=== PATIENT | male | born 2000 | race Caucasian/White ===

== ENCOUNTER 2018-09-19 09:37 | Observation (INO) | payer OTHER ==
[2018-09-19] MEDS ORDERED: SODIUM CHLORIDE 0.9% 500 ML 500 ML IV STA (09:55)
[2018-09-19] MEDS ORDERED: MAG HYDROX/AL HYDROX/SIMETH 30 ML, HYOSCYAMINE ELIXIR 10 ML, CIMETIDINE HCL 300 MG, LID... PO STA ×4 (10:07)
--- NOTE | 2018-09-19 10:25 | ED ---
General Adult HPI - General Source: patient Mode of arrival: ambulatory Limitations: no limitations <Lemuel Blanco - Last Filed: 09/19/18 10:09> <Joni Dozier - Last Filed: 09/20/18 15:14> - General Chief complaint: Abdominal Pain Stated complaint: CAMILA - History of Present Illness Initial comments: 17-year-old male patient with no pertinent past medical history presents to ED with abdominal pain. Patient states that shortly after waking up this morning at approximately 8:30 AM he began to experience crampy, sharp/stabbing, waxing and waning abdominal pain. The pain is located in his epigastric region, does not radiate. Patient states that for this pain he took one 81 mg aspirin. The aspirin did not relieve his symptoms. During the episodes of crampy epigastric abdominal pain the patient additionally experiences some shortness of breath. The SOB is not exertional and has no associated chest pain. The SOB has resolved. Patient has some nausea, but no emesis. Systemic: Pt denies fatigue, myalgia, fever/chills, rash. Pt denies weakness, night sweats, weight loss. Neuro: Pt denies headache, visual disturbances, syncope or pre-syncope. HEENT: Pt denies ocular discharge or irritation, otalgia, rhinorrhea, pharyngitis or notable lymphadenopathy. Cardiopulmonary: Pt denies chest pain, heart palpitations, dyspnea on exertion. Abdominal/GI: Pt denies emesis or diarrhea. : Pt denies dysuria, burning w/ urination, frequency/urgency. Denies new onset urinary or bowel incontinence. MSK: Pt denies myalgia, loss of strength or function in extremities. (Lemuel Blanco) - Related Data Previous Rx's Medication Instructions Recorded Omeprazole [PriLOSEC] 40 mg PO AC-BRKFST #14 capsule. 09/20/18 Allergies Allergy/AdvReac Type Severity Reaction Status Date / Time No Known Allergies Allergy Verified 09/19/18 10:20 Review of Systems ROS Other: All systems not noted in ROS Statement are negative. <Lemuel Blanco - Last Filed: 09/19/18 10:09> ROS Other: All systems not noted in ROS Statement are negative. <Joni Dozier - Last Filed: 09/20/18 15:14> ROS Statement: Those systems with pertinent positive or pertinent negative responses have been documented in the HPI. Past Medical History Past Medical History: No Reported History History of Any Multi-Drug Resistant Organisms: None Reported Past Surgical History: No Surgical Hx Reported Past Psychological History: Depression Smoking Status: Never smoker Past Alcohol Use History: None Reported Past Drug Use History: Marijuana <Lemuel Blanco - Last Filed: 09/19/18 10:09> - Past Family History Mother Additional Family Medical History / Comment(s): migraines Father Family Medical History: Hypertension <Joni Dozier - Last Filed: 09/20/18 15:14> General Exam Limitations: no limitations <Lemuel Blanco - Last Filed: 09/19/18 10:09> <Joni Dozier - Last Filed: 09/20/18 15:14> - General Exam Comments Initial Comments: Constitutional: NAD, AOX3, Pt has pleasant affect. HEENT: NC/AT, trachea midline, neck supple, no lymphadenopathy. Posterior pharynx non erythematous, without exudates. External ears appear normal, without discharge. Mucous membranes moist. Eyes PERRLA, EOM intact. There is no scleral icterus. No pallor noted. Cardiopulmonary: RRR, no murmurs, rubs or gallops, no JVD noted. Lungs CTAB in anterior and posterior woods. No peripheral edema. Abdominal exam: Abdomen soft and non-distended. Abdomen non-tender to palpation in all 4 quadrants. No ecchymosis, no cullens or alonzo turners sign. No tenderness at mcburneys point, rosvings sign negative. [place] sign negative. Bowel sounds active in LLQ. No hepatosplenomegaly. Neuro: CN II-XII grossly intact. (Lemuel Blanco) Vital Signs 09/19/18 09/19/18 09/19/18 09:38 13:39 16:33 Temperature 97.3 F L Pulse Rate 74 85 78 Respiratory 18 18 18 Rate Blood Pressure 136/92 137/94 131/87 O2 Sat by Pulse 99 98 97 Oximetry Medical Decision Making - EKG Data -: EKG Interpreted by Me <Lemuel Blanco - Last Filed: 09/19/18 10:09> - Lab Data Result diagrams: 09/19/18 10:20 09/19/18 10:20 <Joni Dozier - Last Filed: 09/20/18 15:14> - Medical Decision Making 17-year-old male patient with no pertinent past medical history presents to ED with epigastric abdominal pain. The pain began this morning and was not relieved with one 325 aspirin. Patient states that upon waking out he had waxing and waning crampy epigastric abdominal pain. The patient felt these cramps pain as he had difficulty breathing. The difficulty breathing resolved after the episode of abdominal "cramping" ended. Patient was transported to [facility]. Physical exam of patient was non-impressive, notably a nontender abdomen, and a benign cardiopulmonary exam. Upon arrival investigations into intra-abdominal pathology were conducted. These included CT with contrast of the abdomen/pelvis, which displayed one likely nonobstructive gallstone. Laboratory investigations included, CBC, CMP, amylase/lipase, lactic acid - all of which were nonimpressive. An EKG displayed ST elevation consistent with pericarditis. Follow up studies including a d-dimer and troponin were wnl. A repeat EKG displayed the same findings. A bedside echo was also conducted. The pt will be admitted into observation and serial trops. This pt was discussed at length with Dr. Dozier. (Lemuel Blanco) - Lab Data Lab Results 09/19/18 09/19/18 09/19/18 Range/Units 10:20 10:20 10:20 WBC 10.9 (4.0-11.0) k/uL RBC 5.07 (4.30-5.90) m/uL Hgb 15.1 (13.0-17.5) gm/dL Hct 47.0 (39.0-53.0) % MCV 92.7 (80.0-100.0) fL MCH 29.8 (25.0-35.0) pg MCHC 32.2 (31.0-37.0) g/dL RDW 12.7 (11.5-15.5) % Plt Count 334 (150-450) k/uL Neutrophils % 68 % Lymphocytes % 24 % Monocytes % 5 % Eosinophils % 1 % Basophils % 0 % Neutrophils # 7.5 (1.3-7.7) k/uL Lymphocytes # 2.6 (1.0-4.8) k/uL Monocytes # 0.6 (0-1.0) k/uL Eosinophils # 0.1 (0-0.7) k/uL Basophils # 0.0 (0-0.2) k/uL D-Dimer (<0.60) mg/L FEU Sodium 140 (137-145) mmol/L Potassium 4.7 (3.5-5.1) mmol/L Chloride 106 (98-107) mmol/L Carbon Dioxide 27 (22-30) mmol/L Anion Gap 7 mmol/L BUN 17 (9-20) mg/dL Creatinine 0.83 (0.66-1.25) mg/dL Est GFR (CKD-EPI)AfAm >90 (>60 ml/min/1.73 sqM) Est GFR (CKD-EPI)NonAf >90 (>60 ml/min/1.73 sqM) Glucose 108 H (74-99) mg/dL Plasma Lactic Acid Aleks 1.0 (0.7-2.0) mmol/L Calcium 9.4 (8.4-10.2) mg/dL Total Bilirubin 0.5 (0.2-1.3) mg/dL AST 54 (17-59) U/L ALT 65 (21-72) U/L Alkaline Phosphatase 38 (38-126) U/L Troponin I (0.000-0.034) ng/mL Total Protein 7.2 (6.3-8.2) g/dL Albumin 4.0 (3.5-5.0) g/dL Amylase 63 (30-110) U/L Lipase 40 (23-300) U/L 09/19/18 09/19/18 Range/Units 10:20 10:20 WBC (4.0-11.0) k/uL RBC (4.30-5.90) m/uL Hgb (13.0-17.5) gm/dL Hct (39.0-53.0) % MCV (80.0-100.0) fL MCH (25.0-35.0) pg MCHC (31.0-37.0) g/dL RDW (11.5-15.5) % Plt Count (150-450) k/uL Neutrophils % % Lymphocytes % % Monocytes % % Eosinophils % % Basophils % % Neutrophils # (1.3-7.7) k/uL Lymphocytes # (1.0-4.8) k/uL Monocytes # (0-1.0) k/uL Eosinophils # (0-0.7) k/uL Basophils # (0-0.2) k/uL D-Dimer 0.32 (<0.60) mg/L FEU Sodium (137-145) mmol/L Potassium (3.5-5.1) mmol/L Chloride (98-107) mmol/L Carbon Dioxide (22-30) mmol/L Anion Gap mmol/L BUN (9-20) mg/dL Creatinine (0.66-1.25) mg/dL Est GFR (CKD-EPI)AfAm (>60 ml/min/1.73 sqM) Est GFR (CKD-EPI)NonAf (>60 ml/min/1.73 sqM) Glucose (74-99) mg/dL Plasma Lactic Acid Aleks (0.7-2.0) mmol/L Calcium (8.4-10.2) mg/dL Total Bilirubin (0.2-1.3) mg/dL AST (17-59) U/L ALT (21-72) U/L Alkaline Phosphatase (38-126) U/L Troponin I <0.012 (0.000-0.034) ng/mL Total Protein (6.3-8.2) g/dL Albumin (3.5-5.0) g/dL Amylase (30-110) U/L Lipase (23-300) U/L - EKG Data EKG Comments: 1 - 11:52) Normal sinus rhythm. Diffuse ST elevations V1 to V6. No ST depressions. Ventricular rate 73 bpm. NC interval 180. QRS 90. QT 360, QTC 396. 2 - 13:48) Normal sinus rhythm. Diffuse ST elevations V1 to V6. No ST depressions. Ventricular rate 83. NC interval 164. QRS 90. QT 354, QTC 4:15. (Lemuel Blanco) Disposition Decision Date: 09/19/18 (Observation ) Decision Time: 14:59 <Lemuel Blanco - Last Filed: 09/19/18 10:09> <Joni Dozier - Last Filed: 11/02/18 15:14> Clinical Impression: Pericarditis Disposition: ADMITTED IP TO THIS HOSP Condition: Good
[2018-09-19 10:45] LABS: Basophils % (A) 0 %; Eosinophils # (A) 0.1 k/uL (0-0.7); Eosinophils % (A) 1 %; HGB 15.1 gm/dL (13.0-17.5); Lymphocytes # (A) 2.6 k/uL (1.0-4.8); Lymphocytes % (A) 24 %; MCH 29.8 pg (25.0-35.0); MCHC 32.2 g/dL (31.0-37.0); MCV 92.7 fL (80.0-100.0); Mean Platelet Volume 6.3; Monocytes # (A) 0.6 k/uL (0-1.0); Monocytes % (A) 5 %; Neutrophils # (A) 7.5 k/uL (1.3-7.7); Neutrophils % (A) 68 %; Platelet Count 334 k/uL (150-450); RBC 5.07 m/uL (4.30-5.90); RDW 12.7 % (11.5-15.5); WBC 10.9 k/uL (4.0-11.0)
[2018-09-19 10:58] LABS: ALT 65 U/L (21-72); AST 54 U/L (17-59); Alkaline Phosphatase 38 U/L (38-126); Amylase 63 U/L (30-110); Anion Gap 7 mmol/L; Blood Urea Nitrogen 17 mg/dL (9-20); Calcium 9.4 mg/dL (8.4-10.2); Carbon Dioxide 27 mmol/L (22-30); Chloride 106 mmol/L (98-107); Glucose 108 mg/dL (74-99); Lipase 40 U/L (23-300); Potassium 4.7 mmol/L (3.5-5.1); Sodium 140 mmol/L (137-145); Total Bilirubin 0.5 mg/dL (0.2-1.3); Total Protein 7.2 g/dL (6.3-8.2)
--- NOTE | 2018-09-19 11:34 | CT ---
EXAMINATION TYPE: CT abdomen pelvis w con DATE OF EXAM: 09/19/2018 COMPARISON: Abdominal pain INDICATION: epigastric pain/pressure this am DLP: 1522.5 mGycm, Automated exposure control for dose reduction was used. CONTRAST: 100 mL of Isovue 300. Study performed without Oral Contrast TECHNIQUE: Axial images were obtained from above the diaphragm to the pubic rami in the axial plane a t 5 mm thick sections. Reconstructed images are reviewed on the computer in the coronal plane. FINDINGS: Limited CT sections are obtained the lung bases. The lung bases are clear. CT ABDOMEN: Liver: Normal Spleen: Normal Pancreas: Normal Adrenal glands: The adrenal glands are normal. Gallbladder: Appears be a gallstone at the fundus of the gallbladder. Kidneys: No masses are evident. No hydronephrosis is present. No cysts are present. Delayed images were obtained through the kidneys, which remain unremarkable. Aorta: Normal Inferior vena cava: Normal. CT PELVIS: Loops of bowel within the abdomen and pelvis are normal. Study is without oral contrast limiting evaluation. Appendix: Normal as visualized. Urinary bladder: Normal. Genitourinary structures: Prostate appears normal. Osseous structures: No suspicious lytic or sclerotic lesions. IMPRESSIONS: 1. Small gallstone within the gallbladder. 2. Suspicious changes to account for epigastric pain are not otherwise evident.
[2018-09-19] MEDS ORDERED: IBUPROFEN 600 MG TAB PO STA (14:10)
[2018-09-19] MEDS ORDERED: IBUPROFEN 400 MG TAB PO PRN (15:02)
[2018-09-19] MEDS ORDERED: NALOXONE 0.4 MG/ML 1 ML VIAL IV PRN (15:02)
--- NOTE | 2018-09-19 20:49 | P.HPIM ---
History of Present Illness This is a pleasant 17 years old male significant past medical history who presents because of chest pain which wake him up today at 8 am, the pain is central , non radiating , was very severe on the beginning but now much of it is relieved and it is 0/10 now, pt describes his pain as sharp and like stabbing pain that get worse with deep inspiration , pt had mild dry cough ,pt denies sick contact or recent history of common cold On admission patient is afebrile and rest of vitals look stable. CBC and BMP were unremarkable. CT of the abdomen and pelvis with contrast for his epigastric pain and pressure shows: Small gallstones other than that it was negative study EKG there is diffuse st elevation suspicoius for pericarditis, however pt is pretty much is controlled. and he is resting in bed comfortably. Review of Systems CONSTITUTIONAL: No fever, no malaise, no fatigue. HEENT: No recent visual problems or hearing problems. Denied any sore throat. CARDIOVASCULAR: No orthopnea, PND, no palpitations, no syncope. PULMONARY: No shortness of breath, no cough, no hemoptysis. GASTROINTESTINAL: No diarrhea, no nausea, no vomiting, no abdominal pain. Normoactive bowel sounds. NEUROLOGICAL: No headaches, no weakness, no numbness. HEMATOLOGICAL: Denies any bleeding or petechiae. GENITOURINARY: Denies any burning micturition, frequency, or urgency. MUSCULOSKELETAL/RHEUMATOLOGICAL: Denies any joint pain, swelling, or any muscle pain. ENDOCRINE: Denies any polyuria or polydipsia. Past Medical History Past Medical History: No Reported History History of Any Multi-Drug Resistant Organisms: None Reported Past Surgical History: No Surgical Hx Reported Past Psychological History: Depression Smoking Status: Never smoker Past Alcohol Use History: None Reported Past Drug Use History: Marijuana - Past Family History Mother Additional Family Medical History / Comment(s): migraines Father Family Medical History: Hypertension Medications and Allergies Home Medications Medication Instructions Recorded Confirmed Type No Known Home Medications 09/19/18 09/19/18 History Allergies Allergy/AdvReac Type Severity Reaction Status Date / Time No Known Allergies Allergy Verified 09/19/18 10:20 Physical Exam Vitals: Vital Signs Temp Pulse Resp BP Pulse Ox 09/19/18 16:33 78 18 131/87 97 09/19/18 13:39 85 18 137/94 98 11/01/18 09:38 97.3 F L 74 18 136/92 99 Intake and Output 09/19/18 09/19/18 09/19/18 06:59 14:59 22:59 Other: Weight 125.191 kg GENERAL: The patient is alert and oriented x3, not in any acute distress. Well developed, well nourished. HEENT: Pupils are round and equally reacting to light. EOMI. No scleral icterus. No conjunctival pallor. Normocephalic, atraumatic. No pharyngeal erythema. No thyromegaly. CARDIOVASCULAR: S1 and S2 present. No murmurs, rubs, or gallops. PULMONARY: Chest is clear to auscultation, no wheezing or crackles. ABDOMEN: Soft, nontender, nondistended, normoactive bowel sounds. No palpable organomegaly. MUSCULOSKELETAL: No joint swelling or deformity. EXTREMITIES: No cyanosis, clubbing, or pedal edema. NEUROLOGICAL: Gross neurological examination did not reveal any focal deficits. SKIN: No rashes. Results CBC & Chem 7: 09/19/18 10:20 09/19/18 10:20 Labs: Abnormal Lab Results - Last 24 Hours (Table) 09/19/18 Range/Units 10:20 Glucose 108 H (74-99) mg/dL Assessment and Plan Assessment: Chest pain, rule out pericarditis small gall stone on CT scan Plan: This is a pleasant 17 years old male who presents because of chest pain and possible pericarditis. Serial cardiac enzymes and: Cardiology consult. Continue with pain management. Labs and medication were reviewed. Continue same treatment. Continue with symptomatic treatment. Resume home medication. Monitor lytes and vitals. DVT and GI prophylaxis. Further recommendations of the clinical course of the patient DVT prophylaxis: Patient is mobile and his low risk for DVT. And anticoagulant has more risks than benefit GI Prophylaxis:no need Prognosis is guarded
[2018-09-19] MEDS: COLCHICINE 0.6 MG EACH PO SCH (21:10)
[2018-09-19 21:26] LABS: Appearance,Urine Clear (Clear); Bilirubin,Urine Negative (Negative); Blood,Urine Negative (Negative); Color,Urine Yellow; Glucose,Urine (UA) Negative (Negative); Ketones,Urine Trace (Negative); Leukocyte Esterase,Urine Negative (Negative); Nitrite,Urine Negative (Negative); PH, Urine 6.5 (5.0-8.0); Protein,Urine Negative (Negative); Specific Gravity,Urine 1.018 (1.001-1.035); Urobilinogen,Urine <2.0 mg/dL (<2.0)
[2018-09-20 08:23] VITALS: RESP 16
--- NOTE | 2018-09-20 10:03 | P.CRDCN ---
History of Present Illness Consult date: 09/20/18 Requesting physician: Cruz Beatty Reason for Consult (text): atypical chest pain with typical features Chief complaint: epigastric pain History of present illness: This a pleasant 17-year-old gentleman with no significant past medical history. Presented to the emergency department with complaint of epigastric pain, sharp /stabbing. Described as he felt his diaphragm was cramping. Pain is worse with deep inspiration. Patient felt as if he may been somewhat better when sitting up. Degenerative admission showed diffuse ST elevation. Laboratory values are unremarkable. He denies any complaints of nausea, vomiting, diarrhea , shortness of breath, cough, fever or chills. Computed tomography scan of the abdomen and pelvis did show small gallstone within the gallbladder. Patient had echocardiogram done in the emergency department, results are not available to me at this time. He's been started on colchicine. He was given one dose of ibuprofen in the emergency department. Upon examination, patient is resting comfortably in bed. He's feeling quite a bit better. Denies current complaint of chest discomfort. EKG this morning continues to demonstrate ST elevation. Vital signs have been stable. He's been afebrile. Past Medical History Past Medical History: No Reported History Additional Past Medical History / Comment(s): fx lt wrist(sx) History of Any Multi-Drug Resistant Organisms: None Reported Past Surgical History: No Surgical Hx Reported Additional Past Surgical History / Comment(s): lt wrist Past Anesthesia/Blood Transfusion Reactions: No Reported Reaction Past Psychological History: Depression Smoking Status: Never smoker Past Alcohol Use History: None Reported Past Drug Use History: Marijuana - Past Family History Mother Additional Family Medical History / Comment(s): migraines Father Family Medical History: Hypertension Medications and Allergies Home Medications Medication Instructions Recorded Confirmed Type Omeprazole [PriLOSEC] 40 mg PO MAGDALENE-BRKFST #14 capsule. 09/20/18 Rx Allergies Allergy/AdvReac Type Severity Reaction Status Date / Time No Known Allergies Allergy Verified 09/19/18 10:20 Physical Exam Vitals: Vital Signs Temp Pulse Pulse Resp BP BP Pulse Ox 09/20/18 08:00 97.5 F L 80 16 112/79 95 09/20/18 04:00 97.2 F L 94 18 101/74 96 09/20/18 00:00 97.6 F 84 18 125/81 96 09/19/18 20:00 98.0 F 100 18 131/81 96 09/19/18 16:33 78 18 131/87 97 09/19/18 13:39 85 18 137/94 98 09/19/18 09:38 97.3 F L 74 18 136/92 99 Intake and Output 09/19/18 09/20/18 09/20/18 22:59 06:59 14:59 Intake Total 240 Balance 240 Intake: Oral 240 Other: Voiding Method Toilet Toilet # Voids 1 1 Weight 124.8 kg PHYSICAL EXAMINATION: HEENT: Head is atraumatic, normocephalic. Pupils equal, round. Neck is supple. There is no elevated jugular venous pressure. HEART EXAMINATION: Heart sounds regular, S1 and S2 normal. No murmur or gallop heard. CHEST EXAMINATION: Lungs are clear to auscultation and precussion. No chest wall tenderness is noted on palpation or with deep breathing. ABDOMEN: Soft, nontender. Bowel sounds are heard. No organomegaly noted. EXTREMITIES: 2+ peripheral pulses with no evidence of peripheral edema and no calf tenderness noted. NEUROLOGIC patient is awake, alert and oriented x3. . Results 09/19/18 10:20 09/19/18 10:20 Cardiac Enzymes 09/19/18 09/19/18 Range/Units 10:20 10:20 AST 54 (17-59) U/L Troponin I <0.012 (0.000-0.034) ng/mL CBC 09/19/18 Range/Units 10:20 WBC 10.9 (4.0-11.0) k/uL RBC 5.07 (4.30-5.90) m/uL Hgb 15.1 (13.0-17.5) gm/dL Hct 47.0 (39.0-53.0) % Plt Count 334 (150-450) k/uL Comprehensive Metabolic Panel 09/19/18 Range/Units 10:20 Sodium 140 (137-145) mmol/L Potassium 4.7 (3.5-5.1) mmol/L Chloride 106 (98-107) mmol/L Carbon Dioxide 27 (22-30) mmol/L BUN 17 (9-20) mg/dL Creatinine 0.83 (0.66-1.25) mg/dL Glucose 108 H (74-99) mg/dL Calcium 9.4 (8.4-10.2) mg/dL AST 54 (17-59) U/L ALT 65 (21-72) U/L Alkaline Phosphatase 38 (38-126) U/L Total Protein 7.2 (6.3-8.2) g/dL Albumin 4.0 (3.5-5.0) g/dL Current Medications Generic Name Dose Route Start Last Admin Trade Name Freq PRN Reason Stop Dose Admin Colchicine 0.6 mg 09/19/18 21:00 09/19/18 21:10 Colcrys PO 0.6 mg BID ERICKA Administration Naloxone HCl 0.2 mg 09/19/18 15:02 Narcan IV Q2M PRN Opioid Reversal Intake and Output 09/19/18 09/20/18 09/20/18 22:59 06:59 14:59 Intake Total 240 Balance 240 Intake: Oral 240 Other: Voiding Method Toilet Toilet # Voids 1 1 Weight 124.8 kg 09/19/18 10:20 09/19/18 10:20 Assessment and Plan Assessment: #1 symptoms of epigastric pain #[address] elevation, consistent with early repolarization changes, not diagnostic of pericarditis Plan: From cardiology perspective, we will review 2-D echo with Doppler. We will obtain a sed rate. If these are normal, likely not pericarditis, no further cardiac workup at this time. [employer] note has been reviewed, I agree with a documented findings and plan of care. Patient was seen and examined.
[2018-09-20] MEDS: COLCHICINE 0.6 MG EACH PO SCH (10:21)
--- NOTE | 2018-09-20 10:28 | ECHOF ---
Referral Reason:pericarditis MEASUREMENTS -------- HEIGHT: 177.8 cm WEIGHT: 125.2 kg BP: 136/92 RVIDd: 3.5 cm (< 3.3) IVSd: 1.0 cm (0.6 - 1.1) LVIDd: 4.4 cm (3.9 - 5.3) LVPWd: 1.0 cm (0.6 - 1.1) IVSs: 1.4 cm LVIDs: 3.0 cm LVPWs: 1.2 cm LAESV Index (A-L): 19.42 ml/m Ao Diam: 3.2 cm (2.0 - 3.7) AV Cusp: 2.0 cm (1.5 - 2.6) LA Diam: 2.3 cm (2.7 - 3.8) EPSS: 0.8 cm MV E Abdullahi: 0.78 m/s MV DecT: 195 ms MV A Abdullahi: 0.54 m/s MV E/A Ratio: 1.44 RAP: 5.00 mmHg RVSP: 22.58 mmHg MV EF SLOPE: 145.18 mm/s (70 - 150) MV EXCURSION: 1.70 cm (> 18.000) FINDINGS -------- Sinus rhythm. This was a technically good study. The left ventricular size is normal. Left ventricular wall thickness is normal. Overall left vent ricular systolic function is normal with, an EF between 55 - 60 %. The right ventricle is mildly enlarged. Normal LA size by volume 22+/-6 ml/m2. The right atrium is normal in size. The aortic valve is trileaflet, and appears structurally normal. No aortic stenosis or regurgitation. The mitral valve is normal. There is trace mitral regurgitation. Trace tricuspid regurgitation present. Right ventricular systolic pressure is normal at < 35 mmHg. There is no evidence of pulmonary hypertension. Trace/mild (physiologic) pulmonic regurgitation. The aortic root size is normal. Normal inferior vena cava with normal inspiratory collapse consistent with estimated right atrial pre ssure of 5 mmHg. There is no pericardial effusion. CONCLUSIONS -------- 1. Sinus rhythm. 2. This was a technically good study. 3. The left ventricular size is normal. 4. Left ventricular wall thickness is normal. 5. Overall left ventricular systolic function is normal with, an EF between 55 - 60 %. 6. The right ventricle is mildly enlarged. 7. Normal LA size by volume 22+/-6 ml/m2. 8. The aortic valve is trileaflet, and appears structurally normal. No aortic stenosis or regurgitati on. 9. There is trace mitral regurgitation. 10. Trace tricuspid regurgitation present. 11. Right ventricular systolic pressure is normal at < 35 mmHg. 12. There is no evidence of pulmonary hypertension. 13. Trace/mild (physiologic) pulmonic regurgitation. 14. The aortic root size is normal. 15. There is no pericardial effusion. MOLD PULLER: Hugo Martinez RDCS
[2018-09-20 11:26] VITALS: BP 130/85; PULSE 78; TEMP 97.6
--- NOTE | 2018-09-20 13:13 | P.DS ---
Providers Date of admission: 09/19/18 14:40 Attending physician: Cruz Beatty MD Consults: 09/19/18 14:41 Consult Physician Routine Consulting Provider: Benjamin Vivar Consult Reason/Comments: atypical chest pain with typical features Do you want consulting provider notified?: Yes Primary care physician: Stated None Hospital Course: 17-year-old male was admitted secondary to epigastric abdominal pain, was believed to have pericarditis patient was evaluated cardiology echocardiogram was obtained. The possibility of pericarditis is extremely low. Etiology is a of his epigastric abdominal pain is unclear patient will be discharged on 14 days of Prilosec empirically for possible gastritis. Patient does have cholelithiasis with a small stone in the gallbladder which I do not believe is contributing to his pain patient doesn't have any cholecystitis. Patient will be discharged today. Patient's ESR is within normal limits. PHYSICAL EXAMINATION: GENERAL: The patient is alert and oriented x3, not in any acute distress. Well developed, well nourished. HEENT: Pupils are round and equally reacting to light. EOMI. No scleral icterus. No conjunctival pallor. Normocephalic, atraumatic. No pharyngeal erythema. No thyromegaly. CARDIOVASCULAR: S1 and S2 present. No murmurs, rubs, or gallops. PULMONARY: Chest is clear to auscultation, no wheezing or crackles. ABDOMEN: Soft, nontender, nondistended, normoactive bowel sounds. No palpable organomegaly. MUSCULOSKELETAL: No joint swelling or deformity. EXTREMITIES: No cyanosis, clubbing, or pedal edema. NEUROLOGICAL: Gross neurological examination did not reveal any focal deficits. SKIN: No rashes. For rest of the medical problems hospitalization course please refer to H&P from yesterday Patient Condition at Discharge: Good Plan - Discharge Summary Discharge Rx Participant: No New Discharge Prescriptions: New Omeprazole [PriLOSEC] 40 mg PO AC-BRKFST #14 capsule. Discharge Medication List Omeprazole [PriLOSEC] 40 mg PO AC-BRKFST #14 capsule. 09/20/18 [Rx] Follow up Appointment(s)/Referral(s): Rai Khan MD [STAFF PHYSICIAN] - 09/27/18 2:00 pm (Sunday) Discharge Disposition: HOME SELF-CARE
== END 2018-09-20 13:50 | disposition home or self-care (01) ==
LOC: EC 09:37 → 3SCARD 14:40
PROVIDERS: ADMIT Internal Medicine; ATTEND Internal Medicine
DX: R10.13 Epigastric pain (principal); R07.89 Other chest pain; F32.9 Major depressive disorder, single episode, unspecified; K80.20 Calculus of gallbladder without cholecystitis without obstruction; Z82.49 Family history of ischemic heart disease and other diseases of the circulatory system; Z79.899 Other long term (current) drug therapy
CPT/HCPCS: 96360; 99285; 36415; 93005; 93306; 85379; 80053; 85652; 82150; 83605; 83690; 84484; 85025; 81003; 74177; G0378 ×2; Q9967

== ENCOUNTER → 2018-11-21 | Outpatient (CLI) | payer OTHER ==
--- NOTE | 2018-11-21 08:36 | US ---
EXAMINATION TYPE: US abdomen complete DATE OF EXAM: 11/21/2018 COMPARISON: 09/19/2018 CLINICAL HISTORY: R10.9 Unspecified abdominal pain. EXAM MEASUREMENTS: Liver Length: 14.7 cm Gallbladder Wall: 0.3 cm CBD: 0.5 cm Spleen: 10.0 cm Right Kidney: 10.2 x 3,9 x 5.0 cm Left Kidney: 10.3 x 5.2 x 4.6 cm Patient of large body habitus with extensive midline bowel gas. Pancreas: Obscured by bowel gas Liver: wnl Gallbladder: There is a solitary small approximately 6 mm calculus at the gallbladder neck. Gallblad elvi wall is upper limits of normal secondary to partial contraction. Evidence for sonographic Mak's sign: no CBD: wnl Spleen: wnl Right Kidney: No hydronephrosis or gross evidence of mass seen, slightly obscured at superior and in ferior poles Left Kidney: No hydronephrosis or gross evidence of mass seen, slightly obscured at superior and inf erior poles Upper IVC: wnl Abd Aorta: proximal portion obscured by bowel gas, otherwise wnl The liver is homogenous. The intrahepatic portion of the IVC and proximal abdominal aorta are within normal limits. Common bile duct is unremarkable. The visualized portions of the pancreas are homoge nous. The spleen is unremarkable. Kidneys are symmetric and free of hydronephrosis. No renal lesio ns are seen. IMPRESSION: Cholelithiasis without sonographic evidence of acute cholecystitis. Portions of the exam are suboptimal and/or obscured secondary to overlying bowel gas and patient body habitus.
== END | disposition home or self-care (01) ==
LOC: RADUSWWP 06:58
PROVIDERS: ATTEND Family Medicine
DX: K80.20 Calculus of gallbladder without cholecystitis without obstruction (principal)
CPT/HCPCS: 76700

== ENCOUNTER 2019-02-28 08:02 | Day surgery (SDC) | payer OTHER ==
[2019-02-27 12:44] VITALS: BMI 36.3
--- NOTE | 2019-02-28 05:56 | P.GSHP ---
History of Present Illness H&P Date: 02/28/19 CHIEF COMPLAINT: Cholecystitis HISTORY OF PRESENT ILLNESS: The patient is a 18-year-old male who presents with history of epigastric including right upper quadrant abdominal pain. He underwent diagnostic studies for the gallbladder. Separately his clinical picture was consistent with cholecystitis. Now he presents for surgical intervention. PAST MEDICAL HISTORY: Please see list PAST SURGICAL HISTORY: Please see list MEDICATIONS: Please see list ALLERGIES: Denies. SOCIAL HISTORY: No illicit drug use or recent tobacco use FAMILY HISTORY: Pertinent for gallbladder disease REVIEW OF ORGAN SYSTEMS: CONSTITUTIONAL: No reports of fevers or chills. HEENT: Denies any troubles with the vision or hearing. ENDOCRINE: No reports of hypothyroidism. No diabetes. RESPIRATORY: No recent pneumonias. CARDIOVASCULAR: Denies chest pain or palpitations GI: No blood in stools or constipation. MUSCULOSKELETAL: Has occasional joint pain including back pain. NEURO: No seizure disorders or headaches. No recent stroke. PSYCH: No depression or suicidal ideation. HEMATOLOGIC: No personal or family history of DVTs or pulmonary emboli. PHYSICAL EXAM: VITAL SIGNS: Afebrile vital signs stable GENERAL: Well-developed pleasant male in no acute distress. HEENT: No scleral icterus. Extraocular movements grossly intact. Moist buccal mucosa. NECK: Supple without lymphadenopathy. CHEST: Unlabored respirations. Equal bilateral excursions. CARDIOVASCULAR: Regular rate regular rhythm rhythm. Distal 2+ pulses. ABDOMEN: Soft, nondistended. Tender along the epigastrium and right upper quadrant. MUSCULOSKELETAL: No clubbing, cyanosis, or edema. NEURO : No focal or lateralizing signs. Cranial nerves II-12 within normal limits. PSYCH: Alert and oriented to person, place and time. SKIN: Well perfused. Good skin turgor. ASSESSMENT: 1. Epigastric and right upper quadrant abdominal pain 2. Chronic cholecystitis PLAN: 1. Will need a robotic cholecystectomy possible open. Benefits and risks were described. 2. Heparin for DVT prophylaxis 5000 units. 3. Antibiotic prophylaxis. Past Medical History Past Medical History: No Reported History Additional Past Medical History / Comment(s): abd pain History of Any Multi-Drug Resistant Organisms: None Reported Past Surgical History: Orthopedic Surgery Additional Past Surgical History / Comment(s): lt wrist repair Past Anesthesia/Blood Transfusion Reactions: No Reported Reaction Smoking Status: Never smoker - Past Family History Mother Additional Family Medical History / Comment(s): migraines Father Family Medical History: Hypertension Medications and Allergies Home Medications Medication Instructions Recorded Confirmed Type No Known Home Medications 02/27/19 02/27/19 History Allergies Allergy/AdvReac Type Severity Reaction Status Date / Time No Known Allergies Allergy Verified 02/27/19 12:41
[~2019-02-28 08:02] MED LIST: DEXAMETHASONE SOD PHOSPHATE 10 MG/ML 1 ML VIAL IV ONE; HEPARIN SODIUM,PORCINE 5,000 UNIT/ML 1 ML VIAL SQ ONE; INDOCYANINE GREEN 25 MG VIAL IV STA; LACTATED RINGERS 1,000 ML IV SCH; MIDAZOLAM (PF) 2 MG/2 ML VIAL IV PRN; SCOPOLAMINE 1.5MG/72HR PATCH TRANSDERM ONE; ceFAZolin IN SWFI 2 GM/20 ML SYRINGE IVP ONE
[2019-02-28] MEDS ORDERED: LIDOCAINE 1% 20 ML VIAL (10MG/ML) FOR IV START INTRADERMA ONE (08:29)
[2019-02-28] MEDS: ONDANSETRON 4 MG/2 ML VIAL IVP ONE ×2 (08:32→10:58)
[2019-02-28 08:42] LABS: HCT 45.8 % (39.0-53.0); HGB 15.7 gm/dL (13.0-17.5); MCH 30.9 pg (25.0-35.0); MCHC 34.2 g/dL (31.0-37.0); MCV 90.2 fL (80.0-100.0); Mean Platelet Volume 6.9; Platelet Count 341 k/uL (150-450); RBC 5.08 m/uL (4.30-5.90); RDW 12.9 % (11.5-15.5); WBC 9.4 k/uL (4.0-11.0)
[2019-02-28 08:45] LABS: Albumin 4.8 g/dL (3.5-5.0); Anion Gap 11 mmol/L; Blood Urea Nitrogen 13 mg/dL (9-20); Calcium 9.6 mg/dL (8.4-10.2); Carbon Dioxide 26 mmol/L (22-30); Chloride 105 mmol/L (98-107); Glucose 90 mg/dL (74-99); Sodium 142 mmol/L (137-145); Total Protein 8.4 g/dL (6.3-8.2)
[2019-02-28 08:47] LABS: ALT 36 U/L (21-72); AST 33 U/L (17-59); Alkaline Phosphatase 49 U/L (38-126); Potassium 4.4 mmol/L (3.5-5.1)
[2019-02-28] MEDS ORDERED: PROPOFOL 10 MG/ML 20 ML VIAL IV ONE (09:22)
[2019-02-28] MEDS ORDERED: SUCCINYLCHOLINE CHLORIDE 100 MG/5 ML SYR IV ONE (09:22)
[2019-02-28] MEDS ORDERED: fentaNYL (PF) 50 MCG/ML 2 ML AMP ONE (09:22)
[2019-02-28] MEDS ORDERED: NEOSTIGMINE 1 MG/ML 10 ML VIAL ONE (09:22)
[2019-02-28] MEDS ORDERED: GLYCOPYRROLATE 0.2 MG/ML 2 ML VIAL ONE (09:22)
[2019-02-28] MEDS ORDERED: LIDOCAINE 1% INJ 10MG/ML (20 ML MDV) ONE (09:22)
[2019-02-28] MEDS ORDERED: VECURONIUM 10 MG VIAL IV ONE (09:22)
[2019-02-28] MEDS ORDERED: BUPIVACAIN-EPI 0.5%-1:200,000 30 ML VIAL SQ ONE (09:24)
[2019-02-28] MEDS ORDERED: LACTATED RINGERS 1,000 ML IV ONE (10:06)
[2019-02-28 10:33] VITALS: TEMP 96.9
[2019-02-28] MEDS: HYDROmorphone 0.5 MG/0.5 ML SYRINGE IVP PRN ×2 (10:58→11:05)
--- NOTE | 2019-02-28 10:58 | P.OP ---
Date of Procedure: 02/28/19 Description of Procedure: SURGEON: ROSLYN MICHAEL MD PREOPERATIVE DIAGNOSES: 1. Right upper quadrant abdominal pain 2. Chronic cholecystitis with gallstones 3. Morbid obesity due to excess calories, BMI 36.3 4. Depressive disorder, episodic POSTOPERATIVE DIAGNOSES: 1. Right upper quadrant abdominal pain 2. Chronic cholecystitis with gallstones 3. Morbid obesity due to excess calories, BMI 36.3 4. Depressive disorder, episodic OPERATION: Robotic-assisted da Maty Xi laparoscopic cholecystectomy, multiport with FIREFLY ESTIMATED BLOOD LOSS: 10 mL. SPECIMENS REMOVED: Gallbladder. COMPLICATIONS: None. OPERATIVE FINDINGS: 1. Chronic cholecystitis INDICATIONS: The patient is a 18-year-old male who presents with cholelcystitis. Surgical intervention with a laparoscopic cholecystectomy was described at length including injury to the biliary tree, bleeding, infection, need for further surgery. Informed consent was obtained. Robotic assisted laparoscopic approach was described. Benefits and risks of the procedure including but not limited to bleeding, infection, injury to the biliary tree was described. Informed consent was obtained. DESCRIPTION OF PROCEDURE: Patient was brought to the operating room, placed in supine position. After general induction, the abdomen had been prepped and draped in standard sterile fashion. The robotic da Maty XI system was primed. After a timeout protocol was performed, the patient had been prepped and draped in standard sterile fashion. The patient was injected with indocyanine green. A 5 mm 0 degrees laparoscopic trocar entry was performed along the left upper quadrant. The abdomen insufflated to 15 mmHg pressure which was tolerated well. Diagnostic laparoscopy demonstrated no injury to bowel viscera or mesentery. The liver surface was unremarkable. Next, two 8 mm robotic ports were placed along the right upper abdomen. The camera 8-mm port was maintained along the epigastrium. Another 8 mm port was placed along the left upper abdominal wall after exchanging the 5 mm port. Please note that the ports were placed at least 10 to 15 cm away from the target anatomy of the gallbladder. The robot was docked along the left lateral abdomen. The patient was repositioned in reverse Trendelenburg position. Using a grasper for arm 3, a grasper for arm 4, including hook cautery for arm 1, the robotic system was docked and primed as described. Instruments were interchanged by the porcelain buildup assistant including hook cautery, Bovie cautery and clip appliers. I had sat at the console. The gallbladder fundus was retracted over the dome of the liver. Initial attention was brought to the infundibulum which was gently retracted in the inferior lateral approach. Using a grasper, the cystic duct including the cystic artery was carefully skeletonized. FIREFLY was used to identify the cystic artery and cystic structures. Large PLASTIC clips were used throughout the entire case. Using a clip instructor apparel manufacture 2 clips were placed proximally, and 1 clip was placed distally along the cystic duct and then cauterized with the cautery. Again care was taken to avoid any injury to the biliary tree as the common bile duct was clearly visualized during this portion of dissection. Next, the cystic artery was similarly clipped and cauterized. Electro-Bovie cautery was used to remove the gallbladder from the hepatic fossa. Mild oozing along the liver bed was controlled with cautery. Hemostasis was checked and found to be adequate. The robot was undocked. I re-scrubbed into the case. Using a 10 mm Endo Catch bag via the left upper quadrant incision, the specimen was removed from the abdominal cavity. All pneumoperitoneum instruments were evacuated from the abdominal cavity. The incisions were reapproximated using 4-0 Monocryl in an interrupted subcuticular fashion. Fascial defects were less than 8 mm in size. Please note along the trocar sites, local anesthetic was placed as a field block prior to insertion of all instruments. Liquid glue was applied to the skin. At the end of the procedure needle, sponge, and instrument count had been verified correct by the plumbing service technician. The patient was transferred to postanesthesia care unit in stable condition. Intraoperative films were shared with the patient's family who were very pleased with the level of care. Console time 13 minutes Plan - Discharge Summary Discharge Rx Participant: No New Discharge Prescriptions: New Ibuprofen [Motrin] 600 mg PO Q8HR PRN #30 tab PRN Reason: Pain HYDROcodone/APAP 5-325MG [[place] 5-325] 1 tab PO Q6HR PRN 3 Days #10 tab PRN Reason: Pain Discharge Medication List HYDROcodone/APAP 5-325MG [[place] 5-325] 1 tab PO Q6HR PRN 3 Days #10 tab 02/28/19 [Rx] Ibuprofen [Motrin] 600 mg PO Q8HR PRN #30 tab 02/28/19 [Rx] Patient Instructions/Handouts: Laparoscopic Cholecystectomy (DC) Activity/Diet/Wound Care/Special Instructions: May shower. No bath tub soaks. No lifting over 4 pounds one week. Discharge Disposition: HOME SELF-CARE
[2019-02-28 11:59] VITALS: RESP 18
[2019-02-28 12:00] VITALS: BP 125/86; PULSE 89
== END 2019-02-28 12:19 | disposition home or self-care (01) ==
LOC: OR 08:02
PROVIDERS: ATTEND Surgery Plastic and Reconstructive Surgery
DX: K80.10 Calculus of gallbladder with chronic cholecystitis without obstruction (principal); E66.01 Morbid (severe) obesity due to excess calories; Z82.49 Family history of ischemic heart disease and other diseases of the circulatory system; Z68.36 Body mass index [BMI] 36.0-36.9, adult; F32.89 Other specified depressive episodes
CPT/HCPCS: 47562; 88304; 80053; 85027; J1644; J1100; J2710; J2405; J2001; J3010; J0330; J2704; J1170; J0690

== ENCOUNTER 2019-06-08 02:30 | Emergency (ER) | payer OTHER ==
--- NOTE | 2019-06-08 03:03 | ED ---
Psych HPI - General Source: patient, family Mode of arrival: ambulatory <Praveena Chowdary - Last Filed: 06/08/19 04:19> <Víctor Molina - Last Filed: 06/08/19 13:35> - General Chief Complaint: Psychiatric Symptoms Stated Complaint: Mental Health Time Seen by Provider: 06/08/19 02:43 - History of Present Illness Initial Comments: 18-year-old male patient presents to the emergency department today for mental health evaluation. Patient has been having suicidal ideation. States that yesterday morning he attempted to kill himself by wrapping his head in a plastic bag and holding it around his neck. Patient states he did remove this just prior to passing out. Patient states that he has been having increasing frequency of suicidal thoughts. Patient states he has been depressed for quite some time. Denies any visual hallucinations was states may be having auditory hallucinations. Denies currently taking or ever having taken any antidepressant medication. He states that he has had therapy in the past but nothing recent. Patient denies any previous mental health admissions. Patient admits to smoking marijuana but denies any alcohol use. Denies any current physical symptoms or concerns. Patient denies any recent rash, fever, chills, shortness breath, chest pain, abdominal pain, nausea, vomiting, diarrhea, constipation, back pain, numbness, tingling, dizziness, weakness, hematuria, dysuria, urinary urgency, urinary frequency, headache, visual changes, or any other complaints. (Praveena Chowdary) - Related Data Previous Rx's Medication Instructions Recorded HYDROcodone/APAP 5-325MG [[place] 1 tab PO Q6HR PRN 3 Days #10 tab 02/28/19 5-325] Ibuprofen [Motrin] 600 mg PO Q8HR PRN #30 tab 02/28/19 Allergies Allergy/AdvReac Type Severity Reaction Status Date / Time No Known Allergies Allergy Verified 06/08/19 02:40 Review of Systems ROS Other: All systems not noted in ROS Statement are negative. <Praveena Chowdary - Last Filed: 06/08/19 04:19> ROS Other: All systems not noted in ROS Statement are negative. <Víctor Molina - Last Filed: 06/08/19 13:35> ROS Statement: Those systems with pertinent positive or pertinent negative responses have been documented in the HPI. Past Medical History Past Medical History: No Reported History Additional Past Medical History / Comment(s): abd pain History of Any Multi-Drug Resistant Organisms: None Reported Past Surgical History: Cholecystectomy, Orthopedic Surgery Additional Past Surgical History / Comment(s): lt wrist repair Past Anesthesia/Blood Transfusion Reactions: No Reported Reaction Past Psychological History: Anxiety, Depression Smoking Status: Current every day smoker Past Alcohol Use History: None Reported Past Drug Use History: Marijuana - Past Family History Mother Additional Family Medical History / Comment(s): migraines Father Family Medical History: Hypertension <Praveena Chowdary Filed: 06/08/19 04:19> General Exam Limitations: no limitations General appearance: alert, in no apparent distress, other (Physical well- developed, well-nourished adult male patient in no acute distress. Vital signs upon presentation are temperature 98.3F, pulse 84, respirations 20, blood pressure 127/72, pulse ox 97% on room air.) Eye exam: Present: normal appearance, PERRL, EOMI. Absent: scleral icterus, conjunctival injection, periorbital swelling ENT exam: Present: normal exam, normal oropharynx, mucous membranes moist Respiratory exam: Present: normal lung sounds bilaterally. Absent: respiratory distress, wheezes, rales, rhonchi, stridor Cardiovascular Exam: Present: regular rate, normal rhythm, normal heart sounds. Absent: systolic murmur, diastolic murmur, rubs, gallop, clicks GI/Abdominal exam: Present: soft, normal bowel sounds. Absent: distended, tenderness, guarding, rebound, rigid Neurological exam: Present: alert, oriented X3, CN II-XII intact Psychiatric exam: Present: normal affect, normal mood Skin exam: Present: warm, dry, intact, normal color. Absent: rash <Praveena Chowdary Filed: 06/08/19 04:19> Course Vital Signs 06/08/19 06/08/19 06/08/19 02:34 06:47 08:03 Temperature 98.3 F Pulse Rate 84 76 72 Respiratory 20 16 16 Rate Blood Pressure 127/72 118/68 115/68 O2 Sat by Pulse 97 100 100 Oximetry 06/08/19 09:51 Temperature 98.7 F Pulse Rate 76 Respiratory 16 Rate Blood Pressure 120/68 O2 Sat by Pulse 98 Oximetry Medical Decision Making <Praveena Chowdary Filed: 06/08/19 04:19> - Lab Data Result diagrams: 06/08/19 05:30 06/08/19 05:30 <Víctor Molina - Last Filed: 06/08/19 13:35> - Medical Decision Making 18-year-old male patient presented to the emergency department today for evaluation of suicidal ideation. Patient no physical symptoms or concerns. He is seen and evaluated by emergency psychiatric services. It is felt he would benefit from inpatient admission at this time. They're attempting to find placement for him. Care will be handed over to my attending Dr. Molina. (Praveena Chowdary) I saw this patient in conjunction with the physician retail event and sales assistant. I performed independent history and physical exam. Agree with case management. I saw the patient and filed a clinical certification (Víctor Molina) - Lab Data Lab Results 06/08/19 06/08/19 06/08/19 Range/Units 02:55 02:55 05:30 WBC 9.9 (4.0-11.0) k/uL RBC 4.88 (4.30-5.90) m/uL Hgb 14.8 (13.0-17.5) gm/dL Hct 44.2 (39.0-53.0) % MCV 90.5 (80.0-100.0) fL MCH 30.3 (25.0-35.0) pg MCHC 33.5 (31.0-37.0) g/dL RDW 14.3 (11.5-15.5) % Plt Count 350 (150-450) k/uL Neutrophils % 57 % Lymphocytes % 35 % Monocytes % 5 % Eosinophils % 2 % Basophils % 1 % Neutrophils # 5.7 (1.3-7.7) k/uL Lymphocytes # 3.4 (1.0-4.8) k/uL Monocytes # 0.5 (0-1.0) k/uL Eosinophils # 0.2 (0-0.7) k/uL Basophils # 0.1 (0-0.2) k/uL Sodium (137-145) mmol/L Potassium (3.5-5.1) mmol/L Chloride (98-107) mmol/L Carbon Dioxide (22-30) mmol/L Anion Gap mmol/L BUN (9-20) mg/dL Creatinine (0.66-1.25) mg/dL Est GFR (CKD-EPI)AfAm (>60 ml/min/1.73 sqM) Est GFR (CKD-EPI)NonAf (>60 ml/min/1.73 sqM) Glucose (74-99) mg/dL Calcium (8.4-10.2) mg/dL Total Bilirubin (0.2-1.3) mg/dL AST (17-59) U/L ALT (21-72) U/L Alkaline Phosphatase (38-126) U/L Total Protein (6.3-8.2) g/dL Albumin (3.5-5.0) g/dL Urine Color Yellow Urine Appearance Clear (Clear) Urine pH 6.0 (5.0-8.0) Ur Specific [place] 1.029 (1.001-1.035) Urine Protein Trace H (Negative) Urine Glucose (UA) Negative (Negative) Urine Ketones Negative (Negative) Urine Blood Negative (Negative) Urine Nitrite Negative (Negative) Urine Bilirubin Negative (Negative) Urine Urobilinogen 2.0 (<2.0) mg/dL Ur Leukocyte Esterase Negative (Negative) Urine Opiates Screen Not Detected (NotDetected) Ur Oxycodone Screen Not Detected (NotDetected) Urine Methadone Screen Not Detected (NotDetected) Ur Propoxyphene Screen Not Detected (NotDetected) Ur Barbiturates Screen Not Detected (NotDetected) U Tricyclic Antidepress Not Detected (NotDetected) Ur Phencyclidine Scrn Not Detected (NotDetected) Ur Amphetamines Screen Not Detected (NotDetected) U Methamphetamines Scrn Not Detected (NotDetected) U Benzodiazepines Scrn Not Detected (NotDetected) Urine Cocaine Screen Not Detected (NotDetected) U Marijuana (THC) Screen Detected H (NotDetected) 06/08/19 Range/Units 05:30 WBC (4.0-11.0) k/uL RBC (4.30-5.90) m/uL Hgb (13.0-17.5) gm/dL Hct (39.0-53.0) % MCV (80.0-100.0) fL MCH (25.0-35.0) pg MCHC (31.0-37.0) g/dL RDW (11.5-15.5) % Plt Count (150-450) k/uL Neutrophils % % Lymphocytes % % Monocytes % % Eosinophils % % Basophils % % Neutrophils # (1.3-7.7) k/uL Lymphocytes # (1.0-4.8) k/uL Monocytes # (0-1.0) k/uL Eosinophils # (0-0.7) k/uL Basophils # (0-0.2) k/uL Sodium 141 (137-145) mmol/L Potassium 4.2 (3.5-5.1) mmol/L Chloride 105 (98-107) mmol/L Carbon Dioxide 27 (22-30) mmol/L Anion Gap 9 mmol/L BUN 15 (9-20) mg/dL Creatinine 0.78 (0.66-1.25) mg/dL Est GFR (CKD-EPI)AfAm >90 (>60 ml/min/1.73 sqM) Est GFR (CKD-EPI)NonAf >90 (>60 ml/min/1.73 sqM) Glucose 94 (74-99) mg/dL Calcium 9.1 (8.4-10.2) mg/dL Total Bilirubin 0.6 (0.2-1.3) mg/dL AST 21 (17-59) U/L ALT 21 (21-72) U/L Alkaline Phosphatase 61 (38-126) U/L Total Protein 7.5 (6.3-8.2) g/dL Albumin 4.4 (3.5-5.0) g/dL Urine Color Urine Appearance (Clear) Urine pH (5.0-8.0) Ur Specific [place] (1.001-1.035) Urine Protein (Negative) Urine Glucose (UA) (Negative) Urine Ketones (Negative) Urine Blood (Negative) Urine Nitrite (Negative) Urine Bilirubin (Negative) Urine Urobilinogen (<2.0) mg/dL Ur Leukocyte Esterase (Negative) Urine Opiates Screen (NotDetected) Ur Oxycodone Screen (NotDetected) Urine Methadone Screen (NotDetected) Ur Propoxyphene Screen (NotDetected) Ur Barbiturates Screen (NotDetected) U Tricyclic Antidepress (NotDetected) Ur Phencyclidine Scrn (NotDetected) Ur Amphetamines Screen (NotDetected) U Methamphetamines Scrn (NotDetected) U Benzodiazepines Scrn (NotDetected) Urine Cocaine Screen (NotDetected) U Marijuana (THC) Screen (NotDetected) Disposition <Praveena Chowdary - Last Filed: 06/08/19 04:19> Is patient prescribed a controlled substance at d/c from ED?: No - Out of Hospital Transfer - Req. Specs Out of Hospital Transfer - Requested Specifics: Psychiatric Non-ICU <Víctor Molina - Last Filed: 06/08/19 13:35> Clinical Impression: Mood disorder Disposition: TRANSFER TO PSYCH HOSP/UNIT Condition: Good Referrals: Rai Khan MD [Primary Care Provider] - 1-2 days
[2019-06-08 03:23] LABS: Amphetamine Screen,Urine Not Detected (NotDetected); Barbiturate Screen,Urine Not Detected (NotDetected); Benzodiazepines Screen,Urine Not Detected (NotDetected); Cocaine Screen,Urine Not Detected (NotDetected); Methadone Screen, Urine Not Detected (NotDetected); Opiate Screen,Urine Not Detected (NotDetected); Oxycodone Screen, Urine Not Detected (NotDetected); Phencyclidine Screen,Urine Not Detected (NotDetected); Tricyclic Antidepressant,Urine Not Detected (NotDetected); Urn Cannabinoid Scrn Detected (NotDetected)
[2019-06-08 05:16] LABS: Appearance,Urine Clear (Clear); Bilirubin,Urine Negative (Negative); Blood,Urine Negative (Negative); Color,Urine Yellow; Glucose,Urine (UA) Negative (Negative); Ketones,Urine Negative (Negative); Leukocyte Esterase,Urine Negative (Negative); Nitrite,Urine Negative (Negative); Protein,Urine Trace (Negative); Specific Gravity,Urine 1.029 (1.001-1.035)
[2019-06-08 05:36] LABS: Basophils # (A) 0.1 k/uL (0-0.2); Basophils % (A) 1 %; Eosinophils # (A) 0.2 k/uL (0-0.7); Eosinophils % (A) 2 %; HCT 44.2 % (39.0-53.0); HGB 14.8 gm/dL (13.0-17.5); Lymphocytes # (A) 3.4 k/uL (1.0-4.8); Lymphocytes % (A) 35 %; MCH 30.3 pg (25.0-35.0); MCHC 33.5 g/dL (31.0-37.0); MCV 90.5 fL (80.0-100.0); Monocytes # (A) 0.5 k/uL (0-1.0); Monocytes % (A) 5 %; Neutrophils # (A) 5.7 k/uL (1.3-7.7); Neutrophils % (A) 57 %; Platelet Count 350 k/uL (150-450); RBC 4.88 m/uL (4.30-5.90); RDW 14.3 % (11.5-15.5); WBC 9.9 k/uL (4.0-11.0)
[2019-06-08 05:48] LABS: ALT 21 U/L (21-72); AST 21 U/L (17-59); African American GFR (CKD) >90 (>60 ml/min/1.73 sqM); Albumin 4.4 g/dL (3.5-5.0); Alkaline Phosphatase 61 U/L (38-126); Anion Gap 9 mmol/L; Blood Urea Nitrogen 15 mg/dL (9-20); Calcium 9.1 mg/dL (8.4-10.2); Carbon Dioxide 27 mmol/L (22-30); Chloride 105 mmol/L (98-107); Glucose 94 mg/dL (74-99); Potassium 4.2 mmol/L (3.5-5.1); Sodium 141 mmol/L (137-145); Total Bilirubin 0.6 mg/dL (0.2-1.3); Total Protein 7.5 g/dL (6.3-8.2)
[2019-06-08 06:48] VITALS: RESP 16
[2019-06-08 09:52] VITALS: BP 120/68; PULSE 76; TEMP 98.7
== END 2019-06-08 09:51 ==
LOC: EC 02:30
DX: F39 Unspecified mood [affective] disorder (principal); R45.851 Suicidal ideations; F17.200 Nicotine dependence, unspecified, uncomplicated
CPT/HCPCS: 36415; 80053; 80306; 81003; 82075; 85025; 99285